=== PATIENT | male | born 1995 | race Caucasian/White ===

== ENCOUNTER 2024-01-21 12:12 | Emergency (ER) | payer OTHER ==
[2024-01-21] MEDS: LIDOCAINE 1%-EPI 1:100,000 20 ML VIAL SQ STA (12:41)
[2024-01-21] MEDS: CEPHALEXIN 500 MG CAP PO STA (12:41)
[2024-01-21] MEDS: SULFAMETHOX-TMP 800-160MG 1 EACH TAB PO STA (12:41)
--- NOTE | 2024-01-21 13:09 | ED ---
Skin/Abscess/FB HPI - General Chief complaint: Skin/Abscess/Foreign Body Stated complaint: R foot sore Time Seen by Provider: 01/21/24 12:24 Source: patient, RN notes reviewed Mode of arrival: ambulatory Limitations: no limitations - History of Present Illness Initial comments: This is a 28-year-old male who presents to the emergency department for a bli ster on the bottom of his right foot. Patient states that this appeared a few days ago after walking a lot. The blister seemed to pop and then refilled. When it refilled it got much bigger and more painful. Patient checked in to [facility] today for fentanyl abuse and was sent to the emergency department for evaluation. Denies any fevers or chills. - Related Data Previous Rx's Medication Instructions Recorded Cephalexin [Keflex] 500 mg PO Q6HR 7 Days #28 cap 01/21/24 Sulfamethox-Tmp 800-160Mg [Bactrim 1 tab PO Q12HR 7 Days #14 tab 01/21/24 DS 800-160 mg] Allergies Allergy/AdvReac Type Severity Reaction Status Date / Time No Known Allergies Allergy Verified 01/21/24 12:20 Review of Systems ROS Statement: Those systems with pertinent positive or pertinent negative responses have been documented in the HPI. ROS Other: All systems not noted in ROS Statement are negative. Past Medical History Past Medical History: No Reported History History of Any Multi-Drug Resistant Organisms: None Reported Past Surgical History: No Surgical Hx Reported Past Psychological History: No Psychological Hx Reported Smoking Status: Current every day smoker Past Alcohol Use History: Rare Past Drug Use History: Opiates General Exam Limitations: no limitations General appearance: alert, in no apparent distress Head exam: Present: atraumatic, normocephalic, normal inspection Respiratory exam: Present: normal lung sounds bilaterally. Absent: respiratory distress, wheezes, rales, rhonchi, stridor Cardiovascular Exam: Present: regular rate, normal rhythm, normal heart sounds. Absent: systolic murmur, diastolic murmur, rubs, gallop, clicks Extremities exam: Present: other (Large fluid collection on the bottom of the right foot containing purulence and blood) Neurological exam: Present: alert, oriented X3, CN II-XII intact Psychiatric exam: Present: normal affect, normal mood Skin exam: Present: warm, dry Course Vital Signs 01/21/24 01/21/24 12:17 13:37 Temperature 98.0 F 98.2 F Pulse Rate 101 H 88 Respiratory 20 18 Rate Blood Pressure 129/87 138/87 O2 Sat by Pulse 100 99 Oximetry Procedures - Incision & Drainage Consent Obtained: verbal consent Indication: Abscess Site: foot Size (cm): 2 Anesthetic Used: lidocaine 1%, with epi Amount (mLs): 2 I&D Cleaning Method: Alcohol Wipe Sterile Field Used?: Yes Scalpel Used: #11 Irrigation Performed?: Yes I&D Drainage Obtained: Pus, Blood Medical Decision Making - Medical Decision Making This is a 28-year-old male who presents to the emergency department for concerns of a blister on the bottom of his right foot. Was pt. sent in by a medical professional or institution? @ -[facility] Did you speak to anyone other than the patient for history? @ -No Did you review nursing and triage notes? @ -Yes, and I agree, it is accurate with regards to the patient's symptoms. Were old charts reviewed? @ -No Differential Diagnosis? @ -Differential Foot Lesion: Abscess, cellulitis, insect bite, blister, this is not meant to be an all- inclusive list. EKG interpreted by me (3pts min.)? @ -Not obtained X-rays interpreted by me (1pt min.)? @ -Not obtained CT interpreted by me (1pt min.)? @ -Not obtained U/S interpreted by me (1pt. min.)? @ -Not obtained What testing was considered but not performed? (CT, X-rays, U/S, labs)? Why? @ -None What meds were considered but not given? Why? @ -None Did you discuss the management of the patient with other professionals? @ -No Did you reconcile home meds? @ -No Was smoking cessation discussed for >3mins.? @ -No Was critical care preformed (if so, how long)? @ -No Were there social determinants of health that impacted care today? How? (Homelessness, low income, unemployed, alcoholism, drug addiction, transportation, low edu. Level, literacy, decrease access to med. care, half-way, rehab)? @ -No Was there de-escalation of care discussed even if they declined? (Discuss DNR or withdrawal of care, Hospice)? @ -No What co-morbidities impacted this encounter? (DM, HTN, Smoking, COPD, CAD, Cancer, CVA, Hep., AIDS, mental health diagnosis, sleep apnea, morbid obesity)? @ -None Was patient admitted / discharged? @ -Discharged. Physical examination consistent with abscess versus infected blister. Incision and drainage performed and a copious amount of purulent material was expressed with improvement in both size and symptoms. Aerobic and anaerobic wound cultures obtained. Prescription for Bactrim and Keflex provided with initial doses administered in the emergency department. Advised warm compresses and alternating with ibuprofen and Tylenol as needed for pain relief. Patient discharged back to [facility] in stable condition. Undiagnosed new problem with uncertain prognosis? @ -None Drug Therapy requiring intensive monitoring for toxicity (Heparin, Nitro, Insulin, Cardizem)? @ -None Were any procedures done? @ -Incision and drainage Diagnosis/symptom? @ -Foot infection/abscess Acute, or Chronic, or Acute on Chronic? @ -Acute Uncomplicated (without systemic symptoms) or Complicated (systemic symptoms)? @ -Uncomplicated Side effects of treatment? @ -None Exacerbation, Progression, or Severe Exacerbation] @ -Not applicable Poses a threat to life or bodily function? @ -No Return precautions reviewed in depth, the patient is instructed to return to the emergency department with any new, worsening, or concerning symptoms. Patient verbalized understanding. This case was discussed in detail with the attending ED physician, Dr. Tang. Presentation, findings, and treatment plan discussed in detail as well. Disposition Clinical Impression: Right foot infection Disposition: HOME SELF-CARE Instructions (If sedation given, give patient instructions): Abscess (ED), Abscess Incision and Drainage (DC) Additional Instructions: Return to the emergency department with any new, worsening, or concerning symptoms. Take both antibiotics as prescribed for 7 days. Apply warm compresses. Alternate with ibuprofen and Tylenol as needed for pain relief. Keep padding on the foot to reduce discomfort. Follow up with your primary care provider in 1-2 days. Prescriptions: Sulfamethox-Tmp 800-160Mg [Bactrim DS 800-160 mg] 1 tab PO Q12HR 7 Days #14 tab Cephalexin [Keflex] 500 mg PO Q6HR 7 Days #28 cap Is patient prescribed a controlled substance at d/c from ED?: No Referrals: None,Stated [Primary Care Provider] - 1-2 days Time of Disposition: 13:09
[2024-01-21] MEDS: ACETAMINOPHEN TAB 500 MG TAB PO STA (13:25)
[2024-01-21] MEDS: KETOROLAC 15 MG/ML 1 ML VIAL IM STA (13:35)
[2024-01-21 13:39] VITALS: BP 138/87; PULSE 88; RESP 18; TEMP 98.2
== END 2024-01-21 13:39 | disposition home or self-care (01) ==
LOC: EC 12:12
DX: L02.611 Cutaneous abscess of right foot (principal); F17.200 Nicotine dependence, unspecified, uncomplicated
CPT/HCPCS: 10060; 87070; 87075; 87205; 99283